=== PATIENT | male | born 1995 | race African-American/Black ===

== ENCOUNTER 2019-03-06 00:55 | Emergency (ER) | payer SELFPAY ==
[~2019-03-06] VITALS: Ht 175.3 cm; Wt 69.3 kg
[2019-03-06 01:02] VITALS: Ht 175.3 cm; Wt 69.3 kg
[2019-03-06] MEDS ORDERED: LIDOCAINE/MYLANTA 40 ML BTL PO ONE (02:30)
[2019-03-06] MEDS ORDERED: MUPI22OI2 TOP (03:16)
[2019-03-06] MEDS ORDERED: FAMO40TA66 PO (03:17)
[2019-03-06 03:27] VITALS: BP 128/72; PULSE 84; RESP 17
--- NOTE | 2019-03-07 22:11 | ERD ---
ER Documentation Chief Complaint Chief Complaint abdominal pain, skin abscess x 1 day HPI 23yo M presents with complaint of LUQ abdominal pain and abscess to left groin x 1 day. Pt states to have felt something crawling in his skin yesterday causing him to pick at his left groin. Pt has not taken any medicine to alleviate his symptoms. Denies nausea, vomiting or diarrhea. No fevers, chills, sweats. Admits EtOH, tobacco, meth, and marijuana use. Denies IVDA. ROS All systems reviewed and are negative except as per history of present illness. Medications Home Meds Active Scripts Famotidine* (Pepcid*) 40 Mg Tablet, 40 MG PO BID, #60 TAB Prov:ROGELIO GREEN PA-C 03/06/19 Mupirocin* (Bactroban*) 2% -22 Gram Oint...g., 1 APPLIC TOP BID for 7 Days, EA Prov:ROGELIO GREEN PA-C 03/06/19 Allergies Allergies: Coded Allergies: No Known Allergy (Unverified , 07/10/12) PMhx/Soc Medical and Surgical Hx: pt denies Surgical Hx History of Surgery: No Anesthesia Reaction: No Hx Neurological Disorder: No Hx Respiratory Disorders: Yes (ASTHMA) Hx Cardiac Disorders: No Hx Psychiatric Problems: No Hx Miscellaneous Medical Probl: No Hx Alcohol Use: Yes (LAST DRINK 03/05/19) Hx Substance Use: Yes (MARIJUANA TODAY 03/05/19) Hx Tobacco Use: Yes Smoking Status: Current every day smoker Physical Exam Vitals Vital Signs Date Temp Pulse Resp B/P (MAP) Pulse Ox O2 O2 Flow FiO2 Time Delivery Rate 03/06/19 98.0 84 17 128/72 99 Room Air 03:27 (90) 03/06/19 98.2 89 18 114/74 99 01:02 (87) Physical Exam Const: No acute distress Head: Atraumatic Eyes: Normal Conjunctiva ENT: Normal External Ears, Nose and Mouth. Neck: Full range of motion. No meningismus. Resp: Clear to auscultation bilaterally Cardio: Regular rate and rhythm, no murmurs Abd: Soft, non tender, non distended. Normal bowel sounds. Mild TTP LUQ. No RUQ or RLQ tenderness. No rebound tenderness. No mcburnys point tenderness. Skin: No petechiae or rashes. Visible 1cm round crusted lesion to the left groin. No fluctuance, no discharge, no warmth. Non-tender. Neur: Awake and alert Psych: Normal Mood and Affect Result Diagram: 03/06/1922403/06/19224 Results 24 hrs Laboratory Tests Test 03/06/19 02:25 White Blood Count 11.1 10^3/ul Red Blood Count 5.11 10^6/ul Hemoglobin 13.5 g/dl Hematocrit 42.2 % Mean Corpuscular Volume 82.6 fl Mean Corpuscular Hemoglobin 26.4 pg Mean Corpuscular Hemoglobin Concent 32.0 g/dl Red Cell Distribution Width 13.2 % Platelet Count 248 10^3/UL Mean Platelet Volume 10.0 fl Immature Granulocytes % 0.100 % Neutrophils % 55.3 % Lymphocytes % 35.5 % Monocytes % 8.2 % Eosinophils % 0.6 % Basophils % 0.3 % Nucleated Red Blood Cells % 0.0 /100WBC Immature Granulocytes # 0.010 10^3/ul Neutrophils # 6.1 10^3/ul Lymphocytes # 3.9 10^3/ul Monocytes # 0.9 10^3/ul Eosinophils # 0.1 10^3/ul Basophils # 0.0 10^3/ul Nucleated Red Blood Cells # 0.0 10^3/ul Sodium Level 142 mmol/L Potassium Level 4.3 mmol/L Chloride Level 106 mmol/L Carbon Dioxide Level 27 mmol/L Anion Gap 9 Blood Urea Nitrogen 18 mg/dl Creatinine 0.91 mg/dl Est Glomerular Filtrat Rate mL/min > 60 mL/min Glucose Level 97 mg/dl Calcium Level 8.7 mg/dl Urine Opiates Screen Negative Urine Barbiturates Negative Urine Amphetamines Screen Positive Urine Benzodiazepines Screen Negative Urine Cocaine Screen Negative Urine Cannabinoids Positive Current Medications Medications Dose Sig/Leon Start Time Status Last (Trade) Ordered Route PRN Stop Time Admin Dose Reason Admin 40 ml ONCE ONCE 03/06/19 DC 03/06/19 Miscellaneous PO 02:30 02:29 Medication 03/06/19 02:31 (Gi Cocktail (2)) Procedures/MDM MDM: This is a 23yo M with hx of substance abuse who presents for evaluation of stomach pain and lesions to left groin x 1 day.Pt is afebrile, no acute distress on exam. Labs unremarkable aside from positive Meth and Marijuana in tox screen. Pt received GI cocktail while in ED with improvement in symptoms. At this time I have very low suspicion for acute abdomen or surgical process. Lesion to groin consistent with folliculitis. Pt is afebrile, with stable vital signs. At this time I believe pt is stable for discharge with outpatient management. Rx for Pepcid and Bactroban provided. Advised to f/u with PCP in next 1-2 days.ED return precautions discussed. Pt expressed verbal understanding and agreement to treatment plan. All questions addressed and answered. Departure Diagnosis: Primary Impression: Gastritis Gastritis type: unspecified gastritis Chronicity: unspecified Gastritis bleeding: presence of bleeding unspecified Qualified Codes: K29.70 - Gastritis, unspecified, without bleeding Additional Impression: Folliculitis Condition: Stable Patient Instructions: Folliculitis, Gastritis Vs. Ulcer ROGELIO GREEN PA-C Mar 07, 2019 22:11
== END 2019-03-06 03:27 | disposition home or self-care (01) ==
LOC: FTE 00:55
DX: K29.70 Gastritis, unspecified, without bleeding (principal); J45.909 Unspecified asthma, uncomplicated; F17.210 Nicotine dependence, cigarettes, uncomplicated; L73.9 Follicular disorder, unspecified
CPT/HCPCS: 80048; 80307; 85025; 99283